=== PATIENT | female | born 1995 | race Caucasian/White ===

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

== ENCOUNTER 2017-02-17 15:16 | Emergency (ER) | payer OTHER ==
[2017-02-17 16:11] LABS: Basophils # (A) 0.1 k/uL (0-0.2); Basophils % (A) 1 %; Eosinophils # (A) 0.1 k/uL (0-0.7); Eosinophils % (A) 2 %; HGB 13.7 gm/dL (11.4-16.0); Lymphocytes # (A) 2.2 k/uL (1.0-4.8); Lymphocytes % (A) 38 %; MCHC 32.7 g/dL (31.0-37.0); MCV 91.7 fL (80.0-100.0); Mean Platelet Volume 7.8; Monocytes # (A) 0.2 k/uL (0-1.0); Monocytes % (A) 4 %; Neutrophils # (A) 3.1 k/uL (1.3-7.7); Neutrophils % (A) 54 %; Platelet Count 283 k/uL (150-450); RBC 4.58 m/uL (3.80-5.40); RDW 13.1 % (11.5-15.5); WBC 5.7 k/uL (4.0-11.0)
[2017-02-17 16:14] LABS: Appearance,Urine Clear (Clear); Bacteria,Urine Rare /hpf; Bilirubin,Urine Negative (Negative); Blood,Urine Negative (Negative); Color,Urine Yellow; Glucose,Urine (UA) Negative (Negative); Ketones,Urine Negative (Negative); Leukocyte Esterase,Urine Moderate (Negative); Mucus,Urine Occasional /hpf; Nitrite,Urine Negative (Negative); PH, Urine 6.5 (5.0-8.0); Protein,Urine Negative (Negative); RBC,Urine 1 /hpf (0-5); Specific Gravity,Urine 1.023 (1.001-1.035); Squamous Epithelial Cell,Urine 6 /hpf (0-4); Urobilinogen,Urine <2.0 mg/dL (<2.0); WBC,Urine 1 /hpf (0-5)
[2017-02-17 16:32] LABS: ALT 42 U/L (9-52); AST 24 U/L (14-36); Albumin 4.8 g/dL (3.5-5.0); Alkaline Phosphatase 43 U/L (38-126); Anion Gap 11 mmol/L; Blood Urea Nitrogen 12 mg/dL (7-17); Calcium 9.8 mg/dL (8.4-10.2); Carbon Dioxide 28 mmol/L (22-30); Chloride 103 mmol/L (98-107); Glucose 67 mg/dL (74-99); Potassium 3.8 mmol/L (3.5-5.1); Sodium 142 mmol/L (137-145); Total Bilirubin 0.4 mg/dL (0.2-1.3); Total Protein 7.9 g/dL (6.3-8.2)
--- NOTE | 2017-02-17 17:09 | ED ---
Nausea/Vomiting/Diarrhea HPI - General Chief complaint: Nausea/Vomiting/Diarrhea Stated complaint: and cramping Time Seen by Provider: 02/17/17 15:34 Source: patient Mode of arrival: ambulatory Limitations: no limitations - History of Present Illness Initial comments: This is a 21-year-old female at 6 weeks estimated gestational age by last pressure. Presents emergent department for "the feeling like I'm going down a roller coaster in my stomach". The patient states it's been going on for last few days. She states that it's not pain just more queasiness that she experiences. She does have a couple episodes of vomiting. She denies any abdominal pain. No vaginal bleeding or discharge. No cramping. She has not established care with her [facility] however does have an ultrasound scheduled for February 27. No lightheadedness. No chest pain. No other complaints. - Related Data Previous Rx's Medication Instructions Recorded [id number] Acid 1 cap PO DAILY #30 cap 02/17/17 [-U Capsule (formulary)] Pyridoxine [Vitamin B-6] 50 mg PO DAILY 30 Days #30 tablet 02/17/17 Allergies Allergy/AdvReac Type Severity Reaction Status Date / Time No Known Allergies Allergy Verified 02/17/17 16:27 Review of Systems ROS Statement: Those systems with pertinent positive or pertinent negative responses have been documented in the HPI. ROS Other: All systems not noted in ROS Statement are negative. Past Medical History Past Medical History: No Reported History History of Any Multi-Drug Resistant Organisms: None Reported Past Surgical History: No Surgical Hx Reported Past Psychological History: Anxiety Smoking Status: Current every day smoker Past Alcohol Use History: None Reported Past Drug Use History: None Reported General Exam - General Exam Comments Initial Comments: Constitutional: Awake alert Appears comfortable Head: Normocephalic atraumatic Eyes: no conjunctival injection No scleral icterus EOMI Neck: No JVD Supple Heart: Regular rate rhythm normal S1-S2 no murmurs Lungs: Clear to auscultation bilaterally No wheezing No rales Abdomen: Soft nondistended nontender Extremities: Non edematous DP pulses intact Radial pulses intact Neuro: A&Ox3 No focal neurologic deficits Psych: Appropriate mood and affect Limitations: no limitations Course Vital Signs 02/17/17 02/17/17 15:22 17:17 Temperature 97.9 F 98.5 F Pulse Rate 96 67 Respiratory 18 16 Rate Blood Pressure 111/69 126/68 O2 Sat by Pulse 100 98 Oximetry Medical Decision Making - Medical Decision Making Is a 21-year-old female who presented for queasiness. Her labwork was reviewed and unremarkable. The patient did not require any medications in the emergency department. She denied non-emergent or acute abdomen. No pelvic discomfort or vaginal bleeding. I advised her to start taking prenatals and vitamin B6 for morning sickness. She is to follow-up with her [facility] and have her ultrasound performed. Can return if she has any worsening symptoms. All questions were answered. - Lab Data Result diagrams: 02/17/17 16:00 02/17/17 16:00 Lab Results 02/17/17 02/17/17 02/17/17 Range/Units 16:00 16:00 16:04 WBC 5.7 (4.0-11.0) k/uL RBC 4.58 (3.80-5.40) m/uL Hgb 13.7 (11.4-16.0) gm/dL Hct 42.0 (34.0-46.0) % MCV 91.7 (80.0-100.0) fL MCH 30.0 (25.0-35.0) pg MCHC 32.7 (31.0-37.0) g/dL RDW 13.1 (11.5-15.5) % Plt Count 283 (150-450) k/uL Neutrophils % 54 % Lymphocytes % 38 % Monocytes % 4 % Eosinophils % 2 % Basophils % 1 % Neutrophils # 3.1 (1.3-7.7) k/uL Lymphocytes # 2.2 (1.0-4.8) k/uL Monocytes # 0.2 (0-1.0) k/uL Eosinophils # 0.1 (0-0.7) k/uL Basophils # 0.1 (0-0.2) k/uL Sodium 142 (137-145) mmol/L Potassium 3.8 (3.5-5.1) mmol/L Chloride 103 (98-107) mmol/L Carbon Dioxide 28 (22-30) mmol/L Anion Gap 11 mmol/L BUN 12 (7-17) mg/dL Creatinine 0.60 (0.52-1.04) mg/dL Est GFR (MDRD) Af Amer >60 (>60 ml/min/1.73 sqM) Est GFR (MDRD) Non-Af >60 (>60 ml/min/1.73 sqM) Glucose 67 L (74-99) mg/dL Calcium 9.8 (8.4-10.2) mg/dL Total Bilirubin 0.4 (0.2-1.3) mg/dL AST 24 (14-36) U/L ALT 42 (9-52) U/L Alkaline Phosphatase 43 (38-126) U/L Total Protein 7.9 (6.3-8.2) g/dL Albumin 4.8 (3.5-5.0) g/dL HCG, Quant 9814.0 mIU/mL Urine Color Yellow Urine Appearance Clear (Clear) Urine pH 6.5 (5.0-8.0) Ur Specific [place] 1.023 (1.001-1.035) Urine Protein Negative (Negative) Urine Glucose (UA) Negative (Negative) Urine Ketones Negative (Negative) Urine Blood Negative (Negative) Urine Nitrite Negative (Negative) Urine Bilirubin Negative (Negative) Urine Urobilinogen <2.0 (<2.0) mg/dL Ur Leukocyte Esterase Moderate H (Negative) Urine RBC 1 (0-5) /hpf Urine WBC 1 (0-5) /hpf Ur Squamous Epith Cells 6 H (0-4) /hpf Urine Bacteria Rare H (None) /hpf Urine Mucus Occasional H (None) /hpf Disposition Clinical Impression: Nausea/vomiting in Disposition: HOME SELF-CARE Condition: Stable Instructions: Nausea and Vomiting in (ED) Prescriptions: [id number] Acid [-U Capsule (formulary)] 1 cap PO DAILY # 30 cap Pyridoxine [Vitamin B-6] 50 mg PO DAILY 30 Days #30 tablet Referrals: Nonstaff,Physician [Primary Care Provider] - 1-2 days
[2017-02-17 17:18] VITALS: BP 126/68; PULSE 67; RESP 16; TEMP 98.5
== END 2017-02-17 17:23 | disposition home or self-care (01) ==
LOC: EC 15:16
DX: O21.0 Mild hyperemesis gravidarum (principal); O99.331 Smoking (tobacco) complicating pregnancy, first trimester; F17.200 Nicotine dependence, unspecified, uncomplicated; O99.341 Other mental disorders complicating pregnancy, first trimester; F41.9 Anxiety disorder, unspecified; Z3A.01 Less than 8 weeks gestation of pregnancy
CPT/HCPCS: 36415; 80053; 81001; 84702; 85025; 99284

== ENCOUNTER 2017-09-10 16:34 | Outpatient (CLI) | payer OTHER ==
[2017-09-10 17:04] LABS: Amorphous Sediment,Urine Rare /hpf; Appearance,Urine Turbid (Clear); Bacteria,Urine Few /hpf; Bilirubin,Urine Negative (Negative); Blood,Urine Negative (Negative); Color,Urine Light Yellow; Glucose,Urine (UA) Negative (Negative); Ketones,Urine 1+ (Negative); Leukocyte Esterase,Urine Small (Negative); Mucus,Urine Rare /hpf; Nitrite,Urine Negative (Negative); Protein,Urine Negative (Negative); Squamous Epithelial Cell,Urine 1 /hpf (0-4); Urobilinogen,Urine <2.0 mg/dL (<2.0)
[2017-09-10 17:13] VITALS: BP 121/68; PULSE 122; RESP 18; TEMP 98.9
--- NOTE | 2017-09-11 10:57 | P.MSEPDOC ---
Presenting Problems - Arrival Data Date of Arrival on Unit: 09/10/17 Time of Arrival on Unit: 16:34 Mode of Transport: Ambulatory - Complaint OB-Reason for Admission/Chief Complaint: Pain Comment: vaginal pressure and urine that smells sweet Medical History - Information : 1 Para: 0 Term: 0 : 0 Abortions: Spontaneous or Elective: 0 Number of Living Children: 0 - Gestational Age Gestational Age by BRITTANY (wks/days): 36 Weeks and 0 Days Review of Systems - Review of Systems Constitutional: No problems Breast: No problems ENT: No problems Cardiovascular: No problems Respiratory: No problems Gastrointestinal: No problems Genitourinary: No problems Musculoskeletal: No problems Neurological: No problems Skin: No problems Vital Signs - Temperature Temperature: 98.9 F Temperature Source: Temporal Artery Scan - Pulse Right Brachial Pulse Rate: 122 Pulse Assessment Method: Automatic Cuff - Respirations Respiratory Rate: 18 Oxygen Delivery Method: Room Air - Blood Pressure Right Arm Blood Pressure: 121/68 Blood Pressure Mean: 85 Blood Pressure Source: Automatic Cuff Medical Screen Scoring (Pre) - Cervical Exam Dilation: 1-3 cm = 1 Effacement: Exam Deferred Membranes: Intact - Uterine Contractions Frequency: > 5 minutes apart = 1 Duration: > 40 seconds = 2 Intensity: N/A - Maternal Vital Signs Maternal Temperature: N/A Maternal Blood Pressure: N/A Signs of Preeclampsia: N/A Maternal Respirations: N/A - Pain Assessment Pain Location and Character: Perineal Pain Scale Used: Numeric (1 - 10) Pain Intensity: 5 Pain Management Goal: 3 Pain Description: *Acute Pain Frequency: Intermittent Pain Duration: 3 Pain Duration Units: Hours Pain Behavior: Vocalization - Maternal Trauma Maternal Trauma: N/A - Assessment Baseline FHR: 145 Heart Rate - NICHD Category: Category I (Normal) = 0 NST: Reactive Position: N/A Station: N/A - Total Score Total Score (Pre): 4 - Level of Risk Level of Risk: Low (0-5) Physician Notification (Pre) - Physician Notified Physician Notified Date: 09/10/17 Physician Notified Time: 17:07 Physician/Practitioner Notifed:: Dr. Arenas Spoke With: Dr. Arenas New Order Received: Yes - Notification Comment Comment: Discharge pt home if urine is wnl, follow up in office at next scheduled appt Disposition - Disposition OB Disposition: Triage, Discharge to home, Written follow up instructions reviewed Discharge Date: 09/10/17 Discharge Time: 17:20 I agree with the RN Medical Screening Exam: Yes Risk & Benefit of care provided described in d/c instruction: Yes Diagnosis: PELVIC AND PERINEAL PAIN
== END 2017-09-10 17:20 | disposition home or self-care (01) ==
LOC: FBPOP 16:34
PROVIDERS: ATTEND Obstetrics & Gynecology
DX: O26.893 Other specified pregnancy related conditions, third trimester (principal); R10.2 Pelvic and perineal pain; Z3A.36 36 weeks gestation of pregnancy
CPT/HCPCS: 59025; 81001; G0463; 99213

== ENCOUNTER → 2017-09-28 | Outpatient (CLI) | payer OTHER ==
[2017-09-28 23:27] VITALS: BP 133/76; PULSE 127; RESP 18; TEMP 98
--- NOTE | 2017-10-01 08:26 | P.MSEPDOC ---
Presenting Problems - Arrival Data Date of Arrival on Unit: 09/28/17 Time of Arrival on Unit: 22:40 Mode of Transport: Wheelchair - Complaint OB-Reason for Admission/Chief Complaint: Rule Out SROM Comment: possible SROM at 1900, no fluid since then Medical History - Information : 1 Para: 0 Term: 0 : 0 Abortions: Spontaneous or Elective: 0 Number of Living Children: 0 - Gestational Age Gestational Age by BRITTANY (wks/days): 38 Weeks and 5 Days Review of Systems - Review of Systems Constitutional: No problems Breast: No problems ENT: No problems Cardiovascular: No problems Respiratory: No problems Gastrointestinal: No problems Genitourinary: No problems Musculoskeletal: No problems Neurological: No problems Skin: No problems Vital Signs - Temperature Temperature: 98.0 F Temperature Source: Temporal Artery Scan - Pulse Right Pulse Rate: 127 Pulse Assessment Method: Automatic Cuff - Respirations Respiratory Rate: 18 Oxygen Delivery Method: Room Air - Blood Pressure Right Arm Blood Pressure: 133/76 Blood Pressure Mean: 95 Blood Pressure Source: Automatic Cuff Medical Screen Scoring (Pre) - Cervical Exam Dilation: 1-3 cm = 1 Effacement: More than 50% = 2 Membranes: Intact - Uterine Contractions Frequency: > 5 minutes apart = 1 Duration: > 40 seconds = 2 Intensity: N/A - Maternal Vital Signs Maternal Temperature: N/A Maternal Blood Pressure: N/A Signs of Preeclampsia: N/A Maternal Respirations: N/A - Pain Assessment Pain Scale Used: Numeric (1 - 10) Pain Intensity: 0 - Maternal Trauma Maternal Trauma: N/A - Assessment Baseline FHR: 140 Heart Rate - NICHD Category: Category I (Normal) = 0 NST: Reactive Position: N/A Station: N/A - Total Score Total Score (Pre): 6 - Level of Risk Level of Risk: Medium (6-9) Physician Notification (Pre) - Physician Notified Physician Notified Date: 09/28/17 Physician Notified Time: 23:12 Physician/Practitioner Notifed:: Dr. Donaldson Spoke With: Dr. Donaldson New Order Received: Yes - Notification Comment Comment: discharge pt home, she is scheduled for induction on Disposition - Disposition OB Disposition: Discharge to home, Written follow up instructions reviewed Discharge Date: 09/28/17 Discharge Time: 23:20 I agree with the RN Medical Screening Exam: Yes Risk & Benefit of care provided described in d/c instruction: Yes Diagnosis: FALSE LABOR AT OR AFTER 37 COMPLETED WEEKS OF GESTATION
== END | disposition home or self-care (01) ==
LOC: FBPOP 22:40
PROVIDERS: ATTEND Obstetrics & Gynecology
DX: O47.1 False labor at or after 37 completed weeks of gestation (principal); Z3A.38 38 weeks gestation of pregnancy
CPT/HCPCS: 59025; 84112; G0463; 99213

== ENCOUNTER 2017-10-03 06:00 | Inpatient (IN) | payer OTHER ==
[2017-10-03] MEDS ORDERED: LIDOCAINE 1% (PF) 10 MG/ML (30 ML SDV) SQ PRN (06:49)
[2017-10-03] MEDS ORDERED: OXYTOCIN 10 UNIT/ML 1 ML VIAL IM PRN (06:49)
[2017-10-03] MEDS ORDERED: METHYLERGONOVINE 0.2 MG/ML 1 ML AMP IM PRN (06:49)
[2017-10-03] MEDS ORDERED: CARBOPROST TROMETHAMINE 250 MCG/ML 1 ML AMP IM PRN (06:49)
[2017-10-03] MEDS ORDERED: TERBUTALINE 1 MG/ML VIAL SQ PRN (06:49)
[2017-10-03] MEDS: LACTATED RINGERS 1,000 ML IV SCH ×3 (07:09→16:48)
[2017-10-03 07:30] LABS: Anisocytosis Slight; Basophils % (A) 0 %; Eosinophils # (A) 0.1 k/uL (0-0.7); Eosinophils % (A) 1 %; HGB 9.2 gm/dL (11.4-16.0); Hypochromasia Marked; Lymphocytes # (A) 1.9 k/uL (1.0-4.8); Lymphocytes % (A) 23 %; MCHC 32.8 g/dL (31.0-37.0); MCV 76.4 fL (80.0-100.0); Mean Platelet Volume 8.6; Microcytosis Slight; Monocytes # (A) 0.5 k/uL (0-1.0); Monocytes % (A) 6 %; Neutrophils # (A) 5.5 k/uL (1.3-7.7); Neutrophils % (A) 68 %; Platelet Count 261 k/uL (150-450); Poikilocytosis Moderate; RBC 3.66 m/uL (3.80-5.40); RDW 16.9 % (11.5-15.5); WBC 8.1 k/uL (4.0-11.0)
[2017-10-03] MEDS: OXYTOCIN 20 UNITS/1000 ML NS 1,000 ML IV SCH (07:30)
[2017-10-03 07:38] VITALS: BMI 33.0
[2017-10-03] MEDS ORDERED: BUTORPHANOL 1 MG/ML 1 ML VIAL IV PRN (08:45)
[2017-10-03] MEDS ORDERED: AMPICILLIN 2,000 MG in SODIUM CHLORIDE 0.9% 100 ML IVPB STA (09:48)
[2017-10-03] MEDS ORDERED: ROPIVACAINE 5MG/ML 20ML VIAL ONE (14:51)
[2017-10-03] MEDS ORDERED: fentaNYL (PF) 50 MCG/ML 5 ML AMP ONE (14:51)
[2017-10-03] MEDS ORDERED: SODIUM CHLORIDE 0.9% 100 ML BAG ONE (14:51)
[2017-10-04] MEDS: AMPICILLIN 1,000 MG in SODIUM CHLORIDE 0.9% 50 ML IVPB SCH ×3 (02:09→20:36)
[2017-10-04] MEDS ORDERED: diphenhydrAMINE 50 MG/ML 1 ML VIAL IVP PRN ×2 (04:37)
[2017-10-04] MEDS ORDERED: HYDROcodone/APAP 5-325MG 1 EACH TAB PO PRN (04:37)
[2017-10-04] MEDS ORDERED: SIMETHICONE 80 MG CHEWABLE PO PRN (04:37)
[2017-10-04] MEDS ORDERED: WITCH HAZEL 1 EACH MED..PAD TOPICAL PRN (04:37)
[2017-10-04] MEDS ORDERED: BENZOCAINE/MENTHOL SPRAY 1 GM/SPRAY AEROSOL TOPICAL PRN (04:37)
[2017-10-04] MEDS ORDERED: HYDROCORTISONE 2.5% RECTAL CREAM 30 GM TUBE RECTAL PRN (04:37)
[2017-10-04] MEDS ORDERED: ZOLPIDEM 5 MG TAB PO PRN (04:37)
[2017-10-04] MEDS ORDERED: diphenhydrAMINE 50 MG CAP PO PRN (04:37)
[2017-10-04] MEDS ORDERED: diphenhydrAMINE 25 MG CAP PO PRN (04:37)
[2017-10-04] MEDS ORDERED: LANOLIN CREAM 5 GM TUBE TOPICAL PRN (04:37)
--- NOTE | 2017-10-04 04:40 | P.HPOB ---
History of Present Illness H&P Date: 10/03/17 Chief Complaint: Intrauterine at term: Induction of labor Patient is 22-year-old at 39 weeks gestation rest for induction of labor. Her Precis course overall has been unremarkable and she is feeling well at this time. She had been measuring slightly small for dates and ultrasounds were shown the baby to be in the 25th percentile. Otherwise she did well through the . A category 1 tracing with heart tones in the 140s as noted and she was dilated to approximately 2 cm 90% effaced artificial rupture membranes was performed and clear fluid is noted. Past Medical History Past Medical History: No Reported History History of Any Multi-Drug Resistant Organisms: None Reported Past Surgical History: No Surgical Hx Reported Past Psychological History: ADD/ADHD, Anxiety, Depression Smoking Status: Never smoker Past Alcohol Use History: None Reported Past Drug Use History: None Reported Medications and Allergies Home Medications Medication Instructions Recorded Confirmed Type Rfg-Cemz-Pxgem Acid 1 cap PO DAILY #30 cap 02/17/17 10/03/17 Rx [-U Capsule (formulary)] Allergies Allergy/AdvReac Type Severity Reaction Status Date / Time No Known Allergies Allergy Verified 10/03/17 07:07 Exam Osteopathic Statement: *. No significant issues noted on an osteopathic structural exam other than those noted in the History and Physical/Consult. Vital Signs Temp Pulse Resp BP 10/03/17 07:33 97.5 F L 106 H 18 123/81 Intake and Output 10/03/17 10/03/17 10/04/17 14:59 22:59 06:59 Intake Total 1000 1000 Balance 1000 1000 Intake: Intake, IV Titration 1000 1000 Amount Lactated Ringers 1,000 ml 1000 1000 @ 125 mls/hr IV .Q8H [facility] Rx#:[id number] Other: # Voids 4 3 Weight 76.657 kg - OBG Physical Exam Breast: both: normal (no masses) Abdomen: bowel sounds normal, no diffuse tenderness, no bruit present, no guarding noted, no hepatomegaly, no splenomegaly, no mass Vulva: both: normal Vagina: normal moisture, no discharge Cervix: no lesion, no discharge Uterus: normal size, normal contour Adnexa: both: normal Anus/Rectum: normal perianal skin, no rectal mass, no hemorrhoids, heme negative Results Result Diagrams: 10/03/17 07:05 Abnormal Lab Results - Last 24 Hours (Table) 10/03/17 Range/Units 07:05 RBC 3.66 L (3.80-5.40) m/uL Hgb 9.2 L (11.4-16.0) gm/dL Hct 28.0 L (34.0-46.0) % MCV 76.4 L (80.0-100.0) fL RDW 16.9 H (11.5-15.5) %
--- NOTE | 2017-10-04 04:42 | P.PROBDLV ---
Vaginal Delivery Note - . Vaginal Delivery Note: Patient progressed complete and pushing with spontaneous vaginal delivery of a viable male over a secondary midline laceration. Following delivery of the head a nuchal cord 1 was easily reduced. Baby was delivered initially from left occiput anterior position during the attempt at delivering the anterior shoulder patient was not pushing well and as the baby was not descending I did perform a posterior shoulder delivery to get the baby delivered little faster babies axilla was grasped and then they was rotated in a clockwise motion to free up the anterior shoulder and then the remainder the baby was delivered. Mouth nares were then bulb suctioned and baby was placed on mother's abdomen where the umbilical cord was clamped and cut in usual fashion. Nursery personnel was present to assume care. Blood was collected for Rh antibody status. Secondary midline laceration was noted and was then repaired with 3-0 Vicryl in usual fashion following Xylocaine for analgesia. During this process. Patient was noted to have at least 400 mL of blood loss mostly due to her IV not flowing well and being very positional and we did do uterine massage to try and firm uterus up and then did a dose of Methergine to try and get the bleeding completely under control. I do not think that the bleeding was overlaid excessive, but with a difficult IV and her still having more bleeding than I felt comfortable with the decision to move forward with secondary uterotonic was made. scores were 7 and 9 at one and 5 minutes respectfully and both mother and baby are currently stable following delivery.
[2017-10-04] MEDS: OXYTOCIN 20 UNITS/1000 ML NS 1,000 ML IV SCH (04:47)
[2017-10-04] MEDS: IBUPROFEN 600 MG TAB PO PRN ×2 (06:09→13:43)
[2017-10-04] MEDS: SENNOSIDES-DOCUSATE SODIUM 1 EACH TAB PO SCH ×2 (13:44→20:04)
[2017-10-04] MEDS ORDERED: Rhogam IMMUNE GLOBULIN 1,500 UNIT/1 ML IM ONE (15:31)
[2017-10-04] MEDS: LACTATED RINGERS 1,000 ML IV SCH (20:35)
[2017-10-05] MEDS: IBUPROFEN 600 MG TAB PO PRN ×4 (02:34→19:47)
--- NOTE | 2017-10-05 07:28 | P.PNOBGVD ---
Subjective - Subjective Patient reports: Reports appetite normal, Reports voiding normally, Reports pain well controlled, Reports ambulating normally [place]: doing well Objective - Latest Vital Signs Latest vital signs: Vital Signs Temp Pulse Resp BP 10/05/17 04:00 98.4 F 96 16 114/68 10/05/17 00:00 98.5 F 113 H 16 108/56 10/04/17 20:00 98.4 F 98 16 115/66 10/04/17 15:52 97.9 F 101 H 18 106/66 10/04/17 13:00 97.8 F 115 H 16 109/60 10/04/17 09:30 98.3 F 123 H 18 119/71 Intake and Output 10/04/17 10/05/17 10/05/17 22:59 06:59 14:59 Other: Voiding Method Toilet # Voids 1 - Exam Lungs: bilateral: normal Chest: Normal S1, Normal S2 Extremities: Present: normal Abdomen: Present: normal appearance, soft Uterus: Present: normal, firm Assessment and Plan Assessment: day #1. Vital signs are stable she is afebrile. Uterus is firm nontender and she is having normal lochia. Patient's predelivery hemoglobin was approximately 9.4 and her postdelivery hemoglobin is pending. I did start her on some iron today and she will stay today most likely go home tomorrow. This point we will continue routine care and check a CBC today. (1) Vaginal delivery Current Visit: Yes Status: Acute Code(s): O80 - ENCOUNTER FOR FULL-TERM UNCOMPLICATED DELIVERY SNOMED Code(s): 901975639 (2) Anemia Current Visit: Yes Status: Chronic Code(s): D64.9 - ANEMIA, UNSPECIFIED SNOMED Code(s): 931816140
[2017-10-05] MEDS: SENNOSIDES-DOCUSATE SODIUM 1 EACH TAB PO SCH ×2 (08:39→19:47)
[2017-10-05 09:27] LABS: Anisocytosis Slight; Basophils % (A) 0 %; Eosinophils # (A) 0.2 k/uL (0-0.7); Eosinophils % (A) 2 %; HCT 22.4 % (34.0-46.0); Hypochromasia Marked; Lymphocytes # (A) 2.2 k/uL (1.0-4.8); Lymphocytes % (A) 22 %; MCH 24.7 pg (25.0-35.0); MCHC 31.6 g/dL (31.0-37.0); Mean Platelet Volume 8.8; Microcytosis Slight; Monocytes # (A) 0.3 k/uL (0-1.0); Monocytes % (A) 3 %; Neutrophils # (A) 7.1 k/uL (1.3-7.7); Neutrophils % (A) 71 %; Platelet Count 230 k/uL (150-450); Poikilocytosis Moderate; RBC 2.87 m/uL (3.80-5.40); RDW 17.5 % (11.5-15.5); WBC 9.9 k/uL (4.0-11.0)
[2017-10-05 09:28] LABS: HGB 7.1 gm/dL (11.4-16.0)
[2017-10-05] MEDS: ACETAMINOPHEN TAB 325 MG TAB PO PRN ×2 (09:44→17:53)
[2017-10-05] MEDS: IRON AG/C/B12/CA/SUC.ACID/STOM 1 EACH TAB PO SCH (10:58)
[2017-10-06] MEDS: IBUPROFEN 600 MG TAB PO PRN (04:27)
--- NOTE | 2017-10-06 07:35 | P.PNOBGVD ---
Subjective - Subjective Patient reports: Reports appetite normal, Reports voiding normally, Reports pain well controlled, Reports ambulating normally [place]: doing well Objective - Latest Vital Signs Latest vital signs: Vital Signs Temp Pulse Resp BP Pulse Ox 10/06/17 00:00 98.4 F 98 16 116/75 97 10/05/17 16:00 97.6 F 105 H 18 120/63 10/05/17 08:00 97.6 F 101 H 18 121/74 98 Intake and Output 10/05/17 10/06/17 10/06/17 22:59 06:59 14:59 Other: Voiding Method Toilet # Voids 1 - Exam Lungs: bilateral: normal Chest: Normal S1, Normal S2 Extremities: Present: normal Abdomen: Present: normal appearance, soft Uterus: Present: normal, firm - Labs Labs: Abnormal Lab Results - Last 24 Hours (Table) 10/05/17 Range/Units 09:00 RBC 2.87 L (3.80-5.40) m/uL Hgb 7.1 L D (11.4-16.0) gm/dL Hct 22.4 L (34.0-46.0) % MCV 78.0 L (80.0-100.0) fL MCH 24.7 L (25.0-35.0) pg RDW 17.5 H (11.5-15.5) % Assessment and Plan Assessment: Post day #2. Patient is resting without complaints. Hemoglobin yesterday was 7.1 she was placed on some iron. Patient's vital signs are stable she is afebrile. Patient is felt to be stable for discharge home follow- up with Dr. Cano for her check an anemia. Plan today is to continue routine care discharge home later this morning. (1) Vaginal delivery Current Visit: Yes Status: Acute Code(s): O80 - ENCOUNTER FOR FULL-TERM UNCOMPLICATED DELIVERY SNOMED Code(s): 450314740 (2) Anemia Current Visit: Yes Status: Chronic Code(s): D64.9 - ANEMIA, UNSPECIFIED SNOMED Code(s): 307591124
--- NOTE | 2017-10-06 07:39 | P.DS ---
Providers Date of admission: 10/03/17 06:39 Expected date of discharge: 10/06/17 Attending physician: Herminio Marc - Discharge Diagnosis(es) (1) Vaginal delivery Current Visit: Yes Status: Acute (2) Anemia Current Visit: Yes Status: Chronic Hospital Course: Please see dictated H&P for intimate details of this patient's admission. Brief summary this is a pleasant 22-year-old admitted by Dr. Marc for elective induction of labor. Patient is admitted and was on have a vaginal delivery viable male . Please see dictated delivery note. She does have some atony and she was chronically anemic therefore her hemoglobin was 7.1. Patient was placed on iron. day #2 she felt be stable for discharge home follow up with Dr. Marc in 6 weeks. Procedures: Induction of labor and normal vaginal delivery. Patient Condition at Discharge: Good Plan - Discharge Summary New Discharge Prescriptions: New Ibuprofen [Motrin] 600 mg PO Q6HR PRN #40 tab PRN Reason: Mild Pain Or Fever >= 100.5 Iron Ag/C/B12/Ca/Suc.acid/Stom [Chromagen LF] 1 each PO DAILY #30 tab No Action Fns-Vzsr-Vwvln Acid [-U Capsule (formulary)] 1 cap PO DAILY #30 cap Discharge Medication List [id number]-Zmblf Acid [-U Capsule (formulary)] 1 cap PO DAILY # 30 cap 02/17/17 [Rx] Ibuprofen [Motrin] 600 mg PO Q6HR PRN #40 tab 10/06/17 [Rx] Iron Ag/C/B12/Ca/Suc.acid/Stom [Chromagen LF] 1 each PO DAILY #30 tab 10/06/17 [ Rx] Follow up Appointment(s)/Referral(s): Herminio Marc DO [Doctor of Osteopathic Medicine] - 6 Weeks Patient Instructions/Handouts: Vaginal Delivery (DC) Activity/Diet/Wound Care/Special Instructions: No intercourse or anything per vagina for 6 weeks. Please call if any fever, chills, excessive vaginal bleeding, and/or abdominal pain. Discharge Disposition: HOME SELF-CARE
[2017-10-06] MEDS: ACETAMINOPHEN TAB 325 MG TAB PO PRN (07:40)
[2017-10-06] MEDS: SENNOSIDES-DOCUSATE SODIUM 1 EACH TAB PO SCH (07:41)
[2017-10-06 08:36] VITALS: BP 116/68; PULSE 119; RESP 18; TEMP 97.6
[2017-10-06] MEDS: IRON AG/C/B12/CA/SUC.ACID/STOM 1 EACH TAB PO SCH (10:14)
== END 2017-10-06 10:15 | disposition home or self-care (01) | DRG 774 ==
LOC: 4FBP 06:39
PROVIDERS: ADMIT Obstetrics & Gynecology; ATTEND Obstetrics & Gynecology
PROC: 10E0XZZ Delivery of Products of Conception, External Approach (ICD-10-PCS; principal; 2017-10-04)
PROC: 0KQM0ZZ Repair Perineum Muscle, Open Approach (ICD-10-PCS; 2017-10-04)
PROC: 00HU33Z Insertion of Infusion Device into Spinal Canal, Percutaneous Approach (ICD-10-PCS; 2017-10-04)
PROC: 3E0R3BZ Introduction of Anesthetic Agent into Spinal Canal, Percutaneous Approach (ICD-10-PCS; 2017-10-04)
DX: O69.81X0 Labor and delivery complicated by cord around neck, without compression, not applicable or unspecified (principal); O90.1 Disruption of perineal obstetric wound; Z37.0 Single live birth; O99.02 Anemia complicating childbirth; O99.344 Other mental disorders complicating childbirth; F90.9 Attention-deficit hyperactivity disorder, unspecified type; F41.9 Anxiety disorder, unspecified; F32.9 Major depressive disorder, single episode, unspecified; Z3A.39 39 weeks gestation of pregnancy
CPT/HCPCS: 85025; 85461; 86850; 86870; 86880; 86900; 86901